=== PATIENT | male | born 1985 | race Caucasian/White ===

== ENCOUNTER 2017-12-17 18:40 | Emergency (ER) | payer OTHER ==
[~2017-12-17] VITALS: Ht 177.8 cm; Wt 90.7 kg
[~2017-12-17 18:40] MED LIST: Cyclobenzaprine5 MG PO; HYDACE5 PO; INSLI100I SC; Lantus100 UNIT/1 SC; Naprosyn500 MG PO
[2017-12-17] MEDS ORDERED: Keflex500 MG PO (19:42)
== END 2017-12-17 19:46 | disposition home or self-care (01) ==
LOC: ER 18:40
DX: L03.317 Cellulitis of buttock (principal); Z79.4 Long term (current) use of insulin; E10.9 Type 1 diabetes mellitus without complications; F17.210 Nicotine dependence, cigarettes, uncomplicated
CPT/HCPCS: 99282

== ENCOUNTER → 2018-02-24 | Outpatient (CLI) | payer OTHER ==
[~2018-02-24] MED LIST changes: +Keflex500 MG PO
== END ==
LOC: LAB 17:25 → LAB SHORT 17:25
DX: L03.317 Cellulitis of buttock (principal)
CPT/HCPCS: 87070; 87075; 87205

== ENCOUNTER 2018-06-12 13:40 | Emergency (ER) | payer OTHER ==
[~2018-06-12] VITALS: Ht 177.8 cm; Wt 95.2 kg
[2018-06-12] MEDS ORDERED: BASAGLAR K100 UNIT/1 SC (14:09)
[2018-06-12] MEDS ORDERED: Humalog100 UNIT/1 SC (14:12)
[2018-06-12] MEDS ORDERED: ALBU90OI6 INH (14:13)
[2018-06-12] MEDS ORDERED: HUMALOG KW200 UNIT/1 SC (15:00)
== END 2018-06-12 15:05 | disposition home or self-care (01) ==
LOC: ER 13:40
DX: E10.65 Type 1 diabetes mellitus with hyperglycemia (principal); R03.0 Elevated blood-pressure reading, without diagnosis of hypertension; Z76.0 Encounter for issue of repeat prescription; F17.210 Nicotine dependence, cigarettes, uncomplicated
CPT/HCPCS: 82947; 99281

== ENCOUNTER 2019-04-27 09:10 | Emergency (ER) | payer OTHER ==
[~2019-04-27] VITALS: Ht 177.8 cm; Wt 93.0 kg
[~2019-04-27 09:10] MED LIST changes: +ALBU90OI6 INH; +BASAGLAR K100 UNIT/1 SC; +HUMALOG KW200 UNIT/1 SC; +Humalog100 UNIT/1 SC
[2019-04-27 10:22] LABS: BASOPHILS ABSOLUTE AUTO 0.03 K/mm3 (0.00-0.23); BASOPHILS PERCENT AUTO 1 % (0-2); EOSINOPHILS ABSOLUTE AUTO 0.26 K/mm3 (0.00-0.68); EOSINOPHILS PERCENT AUTO 6 % (0-6); Hematocrit 44.2 % (37.0-53.0); Hemoglobin 15.2 g/dL (13.5-17.5); IMMATURE GRAN ABSOLUTE AUTO 0.01 K/mm3 (0.00-0.10); IMMATURE GRAN PERCENT AUTO 0 % (0-1); LYMPHOCYTES ABSOLUTE AUTO 1.65 K/mm3 (0.84-5.20); LYMPHOCYTES PERCENT AUTO 36 % (21-46); MONOCYTES ABSOLUTE AUTO 0.38 K/mm3 (0.16-1.47); MONOCYTES PERCENT AUTO 8 % (4-13); Mean Corpuscular HGB 31.5 pg (26.0-34.0); Mean Corpuscular HGB Conc 34.4 g/dL (31.5-36.5); Mean Corpuscular Volume 92 fL (80-100); Mean Platelet Volume 9.6 fL (9.1-12.4); NEUTROPHILS ABSOLUTE AUTO 2.21 K/mm3 (1.96-9.15); NEUTROPHILS PERCENT AUTO 49 % (41-73); Platelet Count 256 K/mm3 (150-400); RDW Coefficient Variation 12.4 % (11.7-14.2); RDW Standard Deviation 41.8 fL (35.1-46.3); Red Blood Cell Count 4.82 M/mm3 (4.30-5.90); White Blood Cell Count 4.54 K/mm3 (4.00-11.30)
[2019-04-27 10:43] LABS: Anion Gap 6 mmol/L (6-16); Blood Urea Nitrogen 11 mg/dL (8-24); CO2, Blood 27 mmol/L (21-32); Calcium, Blood 8.3 mg/dL (8.5-10.1); Chloride, Blood 108 mmol/L (98-108); Glucose, Blood 195 mg/dL (70-99); Potassium, Blood 4.4 mmol/L (3.5-5.5); Sodium, Blood 141 mmol/L (136-145)
[2019-04-27 10:52] LABS: Bun/Creatinine Ratio 11.7 (12.0-20.0); Creatinine, Blood 0.94 mg/dL (0.60-1.20); Glomerular Filtration Rate >60 (60-)
[2019-04-27] MEDS ORDERED: CEPH500 PO (12:22)
[2019-04-27] MEDS ORDERED: Bactrim Ds Tab1 EACH PO (12:22)
== END 2019-04-27 12:28 | disposition home or self-care (01) ==
LOC: ER 09:10
PROVIDERS: Emergency Medicine
DX: L03.317 Cellulitis of buttock (principal); E10.9 Type 1 diabetes mellitus without complications; F17.210 Nicotine dependence, cigarettes, uncomplicated; Z79.899 Other long term (current) drug therapy; Z79.51 Long term (current) use of inhaled steroids
CPT/HCPCS: 36415; 72193; 80048; 85025; 99283-25; Q9967

== ENCOUNTER → 2020-07-16 | Outpatient (CLI) | payer OTHER ==
[~2020-07-16] MED LIST changes: +Bactrim Ds Tab1 EACH PO; +CEPH500 PO
[2020-07-16 13:37] LABS: Microalb/Creat Ratio UR, Rand 4.431 mg/g (0.000-30.000); Microalbumin, Random Urine 5.76 mg/L (0.000-20.000)
== END | disposition home or self-care (01) ==
LOC: LAB SHORT 08:40 → LAB 08:40
PROVIDERS: Nurse Practitioner Family
DX: E10.9 Type 1 diabetes mellitus without complications (principal)
CPT/HCPCS: 82043; 82570

== ENCOUNTER 2021-07-10 08:22 | Emergency (ER) | payer OTHER ==
[~2021-07-10] VITALS: Ht 177.8 cm; Wt 88.9 kg
[2021-07-10] MEDS ORDERED: LISI5 PO (08:49)
[2021-07-10] MEDS ORDERED: Ventolin/Prove6.7 GM INH (09:30)
[2021-07-10] MEDS ORDERED: BUDESONIDE-FO10.2 G2 INH ×2 (09:30→09:33)
[2021-07-10] MEDS ORDERED: ALBU90OI INH (09:33)
== END 2021-07-10 11:41 | disposition home or self-care (01) ==
LOC: ER 08:22
DX: Z76.0 Encounter for issue of repeat prescription (principal); U07.1 COVID-19; J45.901 Unspecified asthma with (acute) exacerbation; E10.9 Type 1 diabetes mellitus without complications
CPT/HCPCS: A9270

== ENCOUNTER 2021-08-12 08:34 | Emergency (ER) | payer OTHER ==
[~2021-08-12] VITALS: Ht 177.8 cm; Wt 90.7 kg
[~2021-08-12 08:34] MED LIST changes: +ALBU90OI INH; +BUDESONIDE-FO10.2 G2 INH; +LISI5 PO; +Ventolin/Prove6.7 GM INH
[2021-08-12 09:49] LABS: BASOPHILS ABSOLUTE AUTO 0.03 K/mm3 (0.00-0.23); BASOPHILS PERCENT AUTO 1 % (0-2); EOSINOPHILS ABSOLUTE AUTO 0.06 K/mm3 (0.00-0.68); EOSINOPHILS PERCENT AUTO 1 % (0-6); Hematocrit 43.9 % (37.0-53.0); Hemoglobin 14.8 g/dL (13.5-17.5); IMMATURE GRAN ABSOLUTE AUTO 0.02 K/mm3 (0.00-0.10); IMMATURE GRAN PERCENT AUTO 0 % (0-1); LYMPHOCYTES ABSOLUTE AUTO 0.94 K/mm3 (0.84-5.20); LYMPHOCYTES PERCENT AUTO 18 % (21-46); MONOCYTES ABSOLUTE AUTO 0.39 K/mm3 (0.16-1.47); MONOCYTES PERCENT AUTO 7 % (4-13); Mean Corpuscular HGB 30.8 pg (26.0-34.0); Mean Corpuscular HGB Conc 33.7 g/dL (31.5-36.5); Mean Corpuscular Volume 91 fL (80-100); Mean Platelet Volume 9.5 fL (9.1-12.4); NEUTROPHILS ABSOLUTE AUTO 3.88 K/mm3 (1.96-9.15); NEUTROPHILS PERCENT AUTO 73 % (41-73); Platelet Count 223 K/mm3 (150-400); RDW Coefficient Variation 12.2 % (11.7-14.2); RDW Standard Deviation 40.9 fL (35.1-46.3); Red Blood Cell Count 4.81 M/mm3 (4.30-5.90); White Blood Cell Count 5.32 K/mm3 (4.00-11.30)
[2021-08-12 10:10] LABS: Influenza A, PCR NEGATIVE (NEGATIVE); Influenza B, PCR NEGATIVE (NEGATIVE); Resp Syncytial Virus, PCR NEGATIVE (NEGATIVE); SARS-Cov-2 (COVID-19) PCR, MMC NEGATIVE (NEGATIVE)
[2021-08-12 10:12] LABS: Alanine Aminotransfer (ALT/SGP 25 U/L (12-78); Albumin, Blood 3.5 g/dL (3.4-5.0); Albumin/Globulin Ratio 1.1 (0.8-1.8); Alk Phos 72 U/L (50-136); Anion Gap 5 mmol/L (6-16); Aspartate Aminotrans (AST/SGOT 19 U/L (12-37); Bilirubin, Total 0.5 mg/dL (0.1-1.0); Blood Urea Nitrogen 10 mg/dL (8-24); Bun/Creatinine Ratio 11.7 (12.0-20.0); CO2, Blood 28 mmol/L (21-32); Calcium, Blood 8.3 mg/dL (8.5-10.1); Chloride, Blood 109 mmol/L (98-108); Creatinine, Blood 0.85 mg/dL (0.60-1.20); Globulin, Blood 3.1 g/dL (2.2-4.0); Glomerular Filtration Rate >60 (60-); Glucose, Blood 101 mg/dL (70-99); Potassium, Blood 3.9 mmol/L (3.5-5.5); Sodium, Blood 142 mmol/L (136-145); Total Protein, Blood 6.6 g/dL (6.4-8.2)
[2021-08-12] MEDS ORDERED: PRED20 PO (11:19)
== END 2021-08-12 11:54 | disposition home or self-care (01) ==
LOC: ER 08:34
PROVIDERS: Physician Assistant
DX: J45.901 Unspecified asthma with (acute) exacerbation (principal); Z20.822 Contact with and (suspected) exposure to COVID-19; E10.9 Type 1 diabetes mellitus without complications; F17.210 Nicotine dependence, cigarettes, uncomplicated
CPT/HCPCS: 0241U; 36415; 71045; 80053; 84145; 85025; 85379; 94640

== ENCOUNTER 2022-05-13 07:39 | Inpatient (IN) | payer OTHER ==
[~2022-05-13] VITALS: Ht 177.8 cm; Wt 80.2 kg
[~2022-05-13 07:39] MED LIST changes: +PRED20 PO
[2022-05-13 09:32] LABS: pH Blood Venous 7.14 (7.34-7.37)
[2022-05-13 09:33] LABS: Base Excess Venous -17.5 mmol/L; Bicarbonate Venous 12.5 mmol/L (24.0-30.0); PCO2 Venous 33.5 mmHg (38-42)
[2022-05-13 09:34] LABS: BASOPHILS ABSOLUTE AUTO 0.03 K/mm3 (0.00-0.23); BASOPHILS PERCENT AUTO 0 % (0-2); EOSINOPHILS PERCENT AUTO 0 % (0-6); Hematocrit 49.4 % (37.0-53.0); Hemoglobin 17.2 g/dL (13.5-17.5); IMMATURE GRAN ABSOLUTE AUTO 0.03 K/mm3 (0.00-0.10); IMMATURE GRAN PERCENT AUTO 0 % (0-1); LYMPHOCYTES PERCENT AUTO 4 % (21-46); MONOCYTES ABSOLUTE AUTO 0.75 K/mm3 (0.16-1.47); MONOCYTES PERCENT AUTO 8 % (4-13); Mean Corpuscular HGB 31.2 pg (26.0-34.0); Mean Corpuscular HGB Conc 34.8 g/dL (31.5-36.5); Mean Corpuscular Volume 90 fL (80-100); Mean Platelet Volume 9.9 fL (9.1-12.4); NEUTROPHILS PERCENT AUTO 87 % (41-73); Platelet Count 268 K/mm3 (150-400); RDW Coefficient Variation 12.1 % (11.7-14.2); RDW Standard Deviation 40.1 fL (35.1-46.3); Red Blood Cell Count 5.52 M/mm3 (4.30-5.90); White Blood Cell Count 9.41 K/mm3 (4.00-11.30)
[2022-05-13 09:52] LABS: Influenza B, PCR NEGATIVE (NEGATIVE); Resp Syncytial Virus, PCR NEGATIVE (NEGATIVE); SARS-Cov-2 (COVID-19) PCR, MMC NEGATIVE (NEGATIVE)
[2022-05-13 09:53] LABS: Influenza A, PCR POSITIVE (NEGATIVE)
[2022-05-13 10:25] LABS: Albumin, Blood 4.2 g/dL (3.4-5.0); Beta-hydroxybutyrate 78.6 mg/dL (0.2-2.8); Bilirubin, Total 1.5 mg/dL (0.1-1.0); Bun/Creatinine Ratio 33.6 (12.0-20.0); Calcium, Blood 9.2 mg/dL (8.5-10.1); Creatinine, Blood 1.4 mg/dL (0.60-1.20); Globulin, Blood 4.4 g/dL (2.2-4.0); Potassium, Blood 5.9 mmol/L (3.5-5.5); Total Protein, Blood 8.6 g/dL (6.4-8.2)
[2022-05-13 12:38] LABS: Source, Urine Clean Catch
[2022-05-13 12:45] LABS: Bilirubin, Urine Neg (Neg); Blood, Urine 3+ (Neg); Glucose Qualitative, Urine 4+ (Neg); Ketones, Urine 4+ (Neg); Leukocyte Esterase, Urine Neg (Neg); Nitrite, Urine Neg (Neg); Protein, Urine 1+ (Neg); Urobilinogen, Urine NORM (Normal)
--- NOTE | 2022-05-13 12:45 | NUR ---
RECEIVED PT FROM ER VIA [facility]. DX-INLUENZA A AND DKA. PMH-HTN, DM1, ASTHMA, CURRENT EVERY DAY SMOKER. PT IS A&0 X4. PT DENIES PAIN. PT ABLE TO STAND INDEPENDENTLY TO TRANSFER FROM [facility] TO BED WITHOUT DIFFICULTY. ECG SHOWS ST WITH RATE 110'S. BP ELEVATED-PT STATES THAT HE HAS NOT TAKEN HIS ANTI-HYPERTENSIVE MEDICATIONS FOR 2-3 DAYS. LUNGS CLEAR. PT REPORTS NASAL CONGESTION AND OCCASIONAL, NON-PRODUCTIVE COUGH. MAINTAINS SATS>90% ON RA. PT DENIES NAUSEA AT PRESENT AND IS TOLERATING SIPS OF WATER WITHOUT DIFFICULTY. ORAL MUCOSA IS VERY DRY AND PT LIPS ARE CHAPPED. PT DENIES PAIN OR DIFFICULTY WITH URINATION AND URINAL PLACED ON BEDSIDE TABLE PER PT REQUEST. PT HAS BILATERAL 20 GUAGE IV TO AC THAT ARE POSITIONAL. POWERGLIDE # 18 GUAGE/10 CM STARTED TO RIGHT UPPER ARM AND CMP SENT TO LAB. CBG 325-INSULIN DRIP @ 8 UNITS/HR. LR @ 350 CC/HR INFUSING. CALL LIGHT WITHIN REACH AND PT AGREES TO CALL FOR ASSIST PRN.
[2022-05-13 12:55] LABS: Appearance, Urine Clear (Clear); Bacteria Not Seen /hpf; Color, Urine Yellow (P-Yellow); Squamous Epithelial Cells Rare /hpf (Few); White Blood Cells, Urine Not Seen /hpf (0-5)
[2022-05-13 14:14] LABS: Bun/Creatinine Ratio 38.2 (12.0-20.0); Calcium, Blood 8.1 mg/dL (8.5-10.1); Creatinine, Blood 1.1 mg/dL (0.60-1.20); Potassium, Blood 4.3 mmol/L (3.5-5.5)
[2022-05-13 14:19] LABS: U Amphetamine Screen Not Detected; U Barbituate Screen Not Detected; U Benzodiazapine Screen Not Detected; U Buprenorphine Screen Not Detected; U Cannabinoids Screen Not Detected; U Cocaine Screen Not Detected; U Methadone Screen Not Detected; U Methamphetamine Screen Not Detected; U Opiates Screen Not Detected; U Oxycodone Screen Not Detected; U Phencyclidine Screen Not Detected; U Propoxyphene Screen Not Detected
--- NOTE | 2022-05-13 15:00 | NUR ---
CBG 289-INSULIN DRIP DECREASED TO 6 UNITS/HR. NEXT CMP @ 1700.
--- NOTE | 2022-05-13 16:00 | NUR ---
PT REPORTS 11/15 GENERAL ACHES-TEMP 99.0.MED WITH TYLENOL PO-SEE EMAR. CBG 194-DR. GARCIA NOTIFIED BY NORMA MCNAIR. IVF CHANGED TO D5 06/09 WITH 20 MEQ KCL @ 200 CC/HR.
--- NOTE | 2022-05-13 17:00 | NUR ---
CBG 249-INSULIN DRIP @ 4 UNITS/HR-CMP DRAWN AND SENT TO LAB. PT STATES THAT HIS BODY ACHES ARE SLIGHTLY IMPROVED-NOW 08/15.
[2022-05-13 17:24] LABS: Bun/Creatinine Ratio 39.8 (12.0-20.0); Calcium, Blood 8.7 mg/dL (8.5-10.1); Creatinine, Blood 0.9 mg/dL (0.60-1.20); Potassium, Blood 4.7 mmol/L (3.5-5.5)
--- NOTE | 2022-05-13 18:00 | NUR ---
[address] GARCIA[address] ANION GAP HAS CLOSED.CBG 262-INSULIN DRIP @ 4 UNITS/HR. ORDERS GIVEN TO DISCONTINUE IVF, ADA DIET, BEGIN LONG ACTING INSULIN, BEGIN HUMALOG IN AM, CBG AC & HS.
--- NOTE | 2022-05-13 20:34 | NUR ---
ASSUMED CARE AT 1900 PATIENT IS ALERT AND ORIENTED X4. 02 SATS >93% ON RA. HR ST 100-120. BP STABLE, DENIES CP/PRESSURE. USES URINAL. INDEPENDENT IN BED. GAVE LONG ACTING INSULIN AND SHUT OFF INSULIN DRIP 1 HOUR LATER. PATIENT CURRENTLY SLEEPING. SEE SHIFT ASSESSMENT FOR MORE INFORMATION.
[2022-05-13 22:07] LABS: Calcium, Blood 8.6 mg/dL (8.5-10.1); Creatinine, Blood 0.84 mg/dL (0.60-1.20); Potassium, Blood 4.5 mmol/L (3.5-5.5)
--- NOTE | 2022-05-14 05:49 | NUR ---
SHIFT SUMMARY PATIENT REMAINS ALERT AND ORIENTED X4, INDEPENDENT IN THE ROOM. 02 SATS >95% ON RA. HR SR 90s, BP STABLE. USES TOILET AND URINAL. RECIEVED ADITIONAL DOSE OF 6 UNITS HUMALOG LAST NIGHT AFTER LONG ACTING AND INSULIN DRIP TURNED OFF, AM CBG 237. CALL LIGHT IN REACH.
[2022-05-14 05:56] LABS: Bun/Creatinine Ratio 35.2 (12.0-20.0); Calcium, Blood 8.3 mg/dL (8.5-10.1); Creatinine, Blood 0.77 mg/dL (0.60-1.20); Potassium, Blood 4.6 mmol/L (3.5-5.5)
--- NOTE | 2022-05-14 09:40 | NUR ---
CARE OF PT ASSUMED AT 0700. PT AWAKE AND ALERT. PT HAS NON-PRODUCTIVE COUGH, C/O SOB AT 0700, RELIEVED WITH UPDRAFT. PT IS INFLUENZA A +, W HX ASTHMA. PT HAS ALBUTEROL AT HOME. LUNGS CLEAR T/O. PT ALSO WITH TACHYCARDIA 130 AFTER NEB TX. PT IS TOLERATING PO, AND IS LOOKING FORWARD TO GOING HOME. INSULIN GTT HAS BEEN OFF SINCE YESTERDAY AROUND 2100. DR GARCIA AND DR MERCHANT IN TO SEE PT THIS AM. PT TO BE DC'D HOME THIS AM.
[2022-05-14] MEDS ORDERED: OSEL12SU2 PO (09:49)
--- NOTE | 2022-05-14 10:31 | NUR ---
VERBAL AND WRITTEN DC INFO GIVEN TO PT W CLEAR UNDERSTANDING. RX CALLED IN TO [facility]. PT DC'D HOME IN STABLE CONDITION AT 1030
--- NOTE | 2022-05-14 10:37 | NUR ---
DISCHARGE PT GIVEN DISCHARGE INSTRUCTIONS, ANSWERED QUESTIONS, AND AMBULATED TO EXIT W/ NO DIFFICULTIES.
== END 2022-05-14 10:30 | disposition home or self-care (01) | DRG 639 ==
LOC: ER 07:39 → ICUW 11:28 → ICUE 13:40
PROVIDERS: Emergency Medicine; Nurse Practitioner Acute Care; Student in an Organized Health Care Education/Training Program; ADMIT Hospitalist
DX: E10.10 Type 1 diabetes mellitus with ketoacidosis without coma (principal); J10.1 Influenza due to other identified influenza virus with other respiratory manifestations; J45.909 Unspecified asthma, uncomplicated; F17.210 Nicotine dependence, cigarettes, uncomplicated; E86.0 Dehydration; E87.5 Hyperkalemia; Z20.822 Contact with and (suspected) exposure to COVID-19; Z79.899 Other long term (current) drug therapy; Z79.51 Long term (current) use of inhaled steroids; Z79.811 Long term (current) use of aromatase inhibitors; Z79.4 Long term (current) use of insulin; Z79.52 Long term (current) use of systemic steroids
CPT/HCPCS: 0241U; 36415; 71045; 80048; 80053; 81001; 82010; 82803; 82947; 83690; 85025; 93005; 93010; 94640; 94664; 94760; 96361; 96374; 99285-25; A9270; C1751; J1650; J1815; J2405; J7030; J7120

== ENCOUNTER 2022-07-16 22:42 | Emergency (ER) | payer OTHER ==
[~2022-07-16] VITALS: Ht 177.8 cm; Wt 86.2 kg
[~2022-07-16 22:42] MED LIST changes: +OSEL12SU2 PO
[2022-07-16] MEDS ORDERED: CYCL10 PO (23:00)
== END 2022-07-16 23:06 | disposition home or self-care (01) ==
LOC: ER 22:42
DX: M54.42 Lumbago with sciatica, left side (principal); S39.012A Strain of muscle, fascia and tendon of lower back, initial encounter; E10.9 Type 1 diabetes mellitus without complications; X50.9XXA Other and unspecified overexertion or strenuous movements or postures, initial encounter; Z79.4 Long term (current) use of insulin; Z79.899 Other long term (current) drug therapy; Z87.891 Personal history of nicotine dependence
CPT/HCPCS: 96372; 99283-25; A9270; J1885

== ENCOUNTER 2023-01-08 05:31 | Emergency (ER) | payer OTHER ==
[~2023-01-08] VITALS: Ht 177.8 cm; Wt 86.2 kg
[~2023-01-08 05:31] MED LIST changes: +CYCL10 PO
[2023-01-08 06:44] LABS: Influenza A, PCR NEGATIVE (NEGATIVE); Influenza B, PCR NEGATIVE (NEGATIVE); Resp Syncytial Virus, PCR NEGATIVE (NEGATIVE); SARS-Cov-2 (COVID-19) PCR, MMC NEGATIVE (NEGATIVE)
[2023-01-08] MEDS ORDERED: ONDA4ODT MM (06:53)
[2023-01-08 07:27] VITALS: BP 136/78
== END 2023-01-08 07:30 | disposition home or self-care (01) ==
LOC: ER 05:31
PROVIDERS: Student in an Organized Health Care Education/Training Program
DX: B34.9 Viral infection, unspecified (principal); E10.9 Type 1 diabetes mellitus without complications; J45.909 Unspecified asthma, uncomplicated; Z20.822 Contact with and (suspected) exposure to COVID-19; Z79.4 Long term (current) use of insulin; Z87.891 Personal history of nicotine dependence
CPT/HCPCS: 0241U; 87081; 87147; 87430; 99283; A9270